=== PATIENT | male | born 1960 | race Caucasian/White ===

== ENCOUNTER → 2023-05-19 14:05 | Outpatient (CLI) | payer MEDICARE, SELFPAY ==
--- NOTE | 2023-05-19 14:16 | XR_ITS ---
PROCEDURE INFORMATION: Exam: XR Lumbosacral Spine Exam date and time: 05/19/2023 2:19 PM Age: 62 years old Clinical indication: Low back pain; Patient HX: Patient starting with new pain management doctor in [facility] he stated. ; Additional info: Radiculopathy, lumbar region TECHNIQUE: Imaging protocol: Radiologic exam of the lumbosacral spine. Views: 6 or more views. Including flexion and extension views. COMPARISON: No relevant prior studies available. FINDINGS: Bones/joints: There is no evidence of acute fracture.There is no evidence of malalignment or dislocation. Anterior osteophyte formation L1 through L5. Intervertebral disc spaces are maintained Soft tissues: Unremarkable. Intraperitoneal space: Surgical clips in the right upper quadrant IMPRESSION: There is no evidence of acute fracture.There is no evidence of malalignment or dislocation. Intervertebral disc spaces are maintained
== END ==
PROVIDERS: Visit Provider Physical Medicine & Rehabilitation Pain Medicine
DX: M54.50 Low back pain, unspecified (principal); M54.16 Radiculopathy, lumbar region
CPT/HCPCS: 72114